=== PATIENT | male | born 1950 | race Two or more races ===

== ENCOUNTER 2020-10-26 20:24 | Inpatient (IN) | payer MEDICARE, OTHER ==
[~2020-10-26] VITALS: Ht 182.9 cm; Wt 121.6 kg
[2020-10-26] MEDS ORDERED: TETANUS-DIPTH-ACEL PERTUSSIS 0.5ML SYR Tdap IM ONE (21:15)
[2020-10-26] MEDS ORDERED: OXYCODONE W/ ACETAMINOPHEN 5/325MG TABLET PO ONE (21:15)
[2020-10-26] MEDS ORDERED: SODIUM CHLORIDE 0.9% 1,000 ML IV ONE (21:15)
[2020-10-26] MEDS ORDERED: LIDOCAINE 1% HCL (LOCAL ANESTH.) INJ 20ML MDV ID ONE (21:30)
[2020-10-26 22:22] LABS: Basophils # (auto) 0.1 10 ^3/uL (0-0.2); Basophils % (auto) 0.4 % (0.0-2.0); Eosinophils # (auto) 0 10 ^3/uL (0-0.8); Eosinophils % (auto) 0.2 % (0.0-7.0); Hematocrit 40.6 % (41.0-53.0); Hemoglobin 14.5 g/dL (13.5-17.5); Lymphocytes # (auto) 1.3 10 ^3/uL (0.4-5.4); Lymphocytes % (auto) 9.7 % (10.0-50.0); Mean Corpuscular Hemoglobin 30.6 pg (28.0-32.0); Mean Corpuscular Hgb Conc. 35.7 g/dL (32.0-36.0); Mean Corpuscular Volume 85.7 fL (80.0-100.0); Monocytes # (auto) 1.7 10 ^3/uL (0-1.3); Monocytes % (auto) 12.4 % (0.0-12.0); Neutrophils # (auto) 10.6 10 ^3/uL (1.6-8.6); Neutrophils % (auto) 77.3 % (37.0-80.0); Nucleated Red Blood Cells % 0.1 %; Red Blood Cells 4.74 10^6/uL (4.5-5.90); Red Cell Distribution Width 14.1 % (11.8-14.3); White Blood Cell 13.7 10^3/uL (4.4-10.8)
[2020-10-26 22:46] LABS: Albumin 3.2 g/dL (3.4-5.0); Calcium 8.3 mg/dL (8.5-10.1); Magnesium 2.7 mg/dL (1.6-2.6); Potassium 3.4 mmol/L (3.5-5.1)
[2020-10-26 22:51] LABS: BUN/Creatinine Ratio 19.9; Bilirubin, Total 0.8 mg/dL (0.2-1.0); Lactic Acid w/Reflex 2.7 mmol/L (0.4-2.0); Total Protein 6.6 g/dL (6.4-8.2)
[2020-10-26 23:14] LABS: INR 1.18 (0.9-1.15)
[2020-10-26] MEDS ORDERED: IOHEXOL 350 MG/ML 100ML IJ ONE (23:31)
[2020-10-27] MEDS ORDERED: ENOXAPARIN SOD 100 MG/1 ML SYRINGE SC ONE (02:30)
[2020-10-27] MEDS ORDERED: ACETAMINOPHEN 325 MG TAB PO PRN (02:45)
[2020-10-27] MEDS ORDERED: MORPHINE SULF INJ 2 MG/ML SYRINGE 1ML IV PRN (02:45)
[2020-10-27] MEDS ORDERED: TEMAZEPAM 15 MG CAP PO PRN (02:45)
[2020-10-27] MEDS ORDERED: ALBUMIN 5% 250 ML IV ONE (02:45)
[2020-10-27] MEDS ORDERED: ATORVASTATIN 20 MG TAB PO ONE (02:45)
[2020-10-27] MEDS ORDERED: NITROGLYCERIN 0.4 MG SL TAB SL PRN (02:45)
[2020-10-27] MEDS: SODIUM CHLORIDE 0.9% 1,000 ML IV SCH ×2 (02:54→18:06)
[2020-10-27] MEDS ORDERED: ENOXAPARIN SOD 120 MG/0.8 ML SYRINGE SC ONE (03:00)
[2020-10-27 03:18] LABS: Anion Gap 12 (5-15); BUN/Creatinine Ratio 20.9; Blood Urea Nitrogen 27 mg/dL (7-18); Calcium 8.2 mg/dL (8.5-10.1); Carbon Dioxide 15 mmol/L (21-32); Chloride 113 mmol/L (98-107); GFR African American 71 mL/min; GFR Non-African American 59 mL/min; Glucose 108 mg/dL (74-106); Potassium 3.7 mmol/L (3.5-5.1); Sodium 140 mmol/L (136-145)
[2020-10-27] MEDS ORDERED: IOHEXOL 350 MG/ML 100ML IJ ONE (04:06)
[2020-10-27 05:52] LABS: Basophils # (auto) 0.1 10 ^3/uL (0-0.2); Basophils % (auto) 1.1 % (0.0-2.0); Eosinophils # (auto) 0 10 ^3/uL (0-0.8); Eosinophils % (auto) 0.3 % (0.0-7.0); Hematocrit 36.1 % (41.0-53.0); Lymphocytes # (auto) 2.2 10 ^3/uL (0.4-5.4); Lymphocytes % (auto) 24.3 % (10.0-50.0); Mean Corpuscular Hemoglobin 31.3 pg (28.0-32.0); Mean Corpuscular Hgb Conc. 35.9 g/dL (32.0-36.0); Mean Corpuscular Volume 87.1 fL (80.0-100.0); Monocytes # (auto) 1.2 10 ^3/uL (0-1.3); Neutrophils # (auto) 5.5 10 ^3/uL (1.6-8.6); Neutrophils % (auto) 61.3 % (37.0-80.0); Nucleated Red Blood Cells % 0.1 %; Red Blood Cells 4.14 10^6/uL (4.5-5.90); Red Cell Distribution Width 14.1 % (11.8-14.3)
[2020-10-27] MEDS: HEPARIN DRIP/D5W 100UNITS/ML 250 ML IV SCH ×2 (06:00→19:30)
[2020-10-27 06:07] LABS: INR 1.24 (0.9-1.15); Partial Thromboplastin Time 31.2 sec (23.0-31.2)
[2020-10-27] MEDS: HYDROcodone-ACET 5/325MG TAB PO PRN (06:33)
[2020-10-27] MEDS: ASPirin 81 mg TAB PO SCH (10:15)
[2020-10-27 10:38] LABS: Cholesterol 86 mg/dL (< 200); HDL Cholesterol 26 mg/dL (40-59); LDL Cholesterol 59 mg/dL (< 100); Triglycerides 117 mg/dL (< 150)
[2020-10-27 10:45] LABS: Urine Bacteria NONE SEEN /hpf (None Seen); Urine Blood 1+ /uL (Negative); Urine Hyaline Cast FEW /lpf (0 - 2); Urine Mucus FEW (None Seen); Urine Specific Gravity 1.045 (1.001-1.035); Urine WBC 2 /hpf (0 - 3)
[2020-10-27 13:53] LABS: INR 1.22 (0.9-1.15)
[2020-10-27 13:55] LABS: Partial Thromboplastin Time 120.6 sec (23.0-31.2)
[2020-10-27] MEDS ORDERED: AML5T PO (15:05)
[2020-10-27] MEDS ORDERED: SIMV5TAB50 PO (15:05)
[2020-10-27] MEDS ORDERED: LOSA100T25 PO (15:08)
[2020-10-27 18:29] LABS: INR 1.16 (0.9-1.15)
[2020-10-27 18:36] LABS: Partial Thromboplastin Time 79.2 sec (23.0-31.2)
[2020-10-27] MEDS: ATORVASTATIN 20 MG TAB PO SCH (22:04)
[2020-10-28 01:56] LABS: INR 1.12 (0.9-1.15)
[2020-10-28 02:00] LABS: Partial Thromboplastin Time 114.5 sec (23.0-31.2)
[2020-10-28] MEDS: SODIUM CHLORIDE 0.9% 1,000 ML IV SCH ×3 (05:32→22:00)
[2020-10-28] MEDS: HEPARIN DRIP/D5W 100UNITS/ML 250 ML IV SCH ×3 (05:45→19:44)
[2020-10-28] MEDS ORDERED: LIDOCAINE 2%HCL (LOCAL ANESTH.) INJ 20ML MDV ONE (07:42)
[2020-10-28] MEDS ORDERED: IODIXANOL 320MG/ML 100ML BTL IV ONE ×2 (07:42→09:46)
[2020-10-28 07:51] LABS: Albumin 2.6 g/dL (3.4-5.0); Calcium 7.9 mg/dL (8.5-10.1); Potassium 3.2 mmol/L (3.5-5.1)
[2020-10-28 07:53] LABS: BUN/Creatinine Ratio 23.2
[2020-10-28 07:55] LABS: Bilirubin, Total 0.5 mg/dL (0.2-1.0); Total Protein 5.5 g/dL (6.4-8.2)
[2020-10-28] MEDS ORDERED: ANGIOMAX 250 MG VIAL IV ONE (08:20)
[2020-10-28] MEDS ORDERED: MIDAZOLAM HCL 1MG/1ML-2 ML VIAL ONE (08:21)
[2020-10-28] MEDS ORDERED: fentaNYL CITRATE 100 MCG/2 ML VL ONE (08:21)
[2020-10-28] MEDS ORDERED: SODIUM CHL 0.9% 0 ML ONE (08:21)
[2020-10-28 08:37] LABS: Basophils # (auto) 0.1 10 ^3/uL (0-0.2); Basophils % (auto) 0.8 % (0.0-2.0); Eosinophils # (auto) 0.3 10 ^3/uL (0-0.8); Eosinophils % (auto) 3.3 % (0.0-7.0); Hematocrit 31.8 % (41.0-53.0); Hemoglobin 11.5 g/dL (13.5-17.5); Lymphocytes # (auto) 2.4 10 ^3/uL (0.4-5.4); Lymphocytes % (auto) 27.3 % (10.0-50.0); Mean Corpuscular Volume 86.1 fL (80.0-100.0); Monocytes # (auto) 0.8 10 ^3/uL (0-1.3); Monocytes % (auto) 9.4 % (0.0-12.0); Neutrophils # (auto) 5.2 10 ^3/uL (1.6-8.6); Neutrophils % (auto) 59.2 % (37.0-80.0); Red Cell Distribution Width 14.2 % (11.8-14.3); White Blood Cell 8.8 10^3/uL (4.4-10.8)
[2020-10-28] MEDS ORDERED: HYDROmorphone HCL 2 MG/ML VL ONE (08:38)
[2020-10-28] MEDS ORDERED: ONDANSETRON HCL 4 MG/2 ML VIAL ONE (08:38)
[2020-10-28] MEDS ORDERED: diphenhdrAMINE HCL 50 MG/1 ML VL ONE (09:04)
[2020-10-28] MEDS ORDERED: HEPARIN SODIUM (PORCINE) 5000 UNITS/ML 1ML VIAL ONE ×3 (09:22→10:32)
[2020-10-28] MEDS: ASPirin 81 mg TAB PO SCH (10:00)
[2020-10-28 11:48] LABS: Basophils # (auto) 0.1 10 ^3/uL (0-0.2); Basophils % (auto) 1.1 % (0.0-2.0); Eosinophils # (auto) 0.3 10 ^3/uL (0-0.8); Eosinophils % (auto) 2.7 % (0.0-7.0); Hematocrit 31.1 % (41.0-53.0); Hemoglobin 10.9 g/dL (13.5-17.5); Lymphocytes # (auto) 2.5 10 ^3/uL (0.4-5.4); Lymphocytes % (auto) 22.2 % (10.0-50.0); Mean Corpuscular Hemoglobin 30.7 pg (28.0-32.0); Mean Corpuscular Hgb Conc. 35.1 g/dL (32.0-36.0); Mean Corpuscular Volume 87.4 fL (80.0-100.0); Monocytes # (auto) 1.1 10 ^3/uL (0-1.3); Monocytes % (auto) 9.5 % (0.0-12.0); Neutrophils # (auto) 7.3 10 ^3/uL (1.6-8.6); Neutrophils % (auto) 64.5 % (37.0-80.0); Nucleated Red Blood Cells % 0.1 %; Red Blood Cells 3.56 10^6/uL (4.5-5.90); Red Cell Distribution Width 14.2 % (11.8-14.3); White Blood Cell 11.2 10^3/uL (4.4-10.8)
[2020-10-28] MEDS ORDERED: WARFARIN SODIUM 10 MG TAB PO ONE (12:00)
[2020-10-28 14:27] VITALS: BP 113/80
[2020-10-28 16:01] LABS: Basophils # (auto) 0.1 10 ^3/uL (0-0.2); Basophils % (auto) 0.9 % (0.0-2.0); Eosinophils # (auto) 0.1 10 ^3/uL (0-0.8); Eosinophils % (auto) 1.3 % (0.0-7.0); Hematocrit 27.7 % (41.0-53.0); Hemoglobin 10.2 g/dL (13.5-17.5); Lymphocytes # (auto) 1.7 10 ^3/uL (0.4-5.4); Lymphocytes % (auto) 14.8 % (10.0-50.0); Mean Corpuscular Hemoglobin 31.2 pg (28.0-32.0); Mean Corpuscular Volume 85.1 fL (80.0-100.0); Monocytes # (auto) 1.1 10 ^3/uL (0-1.3); Monocytes % (auto) 9.8 % (0.0-12.0); Neutrophils # (auto) 8.5 10 ^3/uL (1.6-8.6); Neutrophils % (auto) 73.2 % (37.0-80.0); Red Blood Cells 3.26 10^6/uL (4.5-5.90); White Blood Cell 11.6 10^3/uL (4.4-10.8)
[2020-10-28 17:14] VITALS: BP 104/61
[2020-10-28 19:23] LABS: INR 1.12 (0.9-1.15); Partial Thromboplastin Time 57.2 sec (23.0-31.2)
[2020-10-28 21:36] VITALS: BP 105/54
[2020-10-28] MEDS: ATORVASTATIN 20 MG TAB PO SCH (22:30)
[2020-10-29 01:40] LABS: INR 1.17 (0.9-1.15)
[2020-10-29 01:58] LABS: Partial Thromboplastin Time 80.7 sec (23.0-31.2)
[2020-10-29] MEDS: HYDROcodone-ACET 5/325MG TAB PO PRN ×3 (04:52→21:42)
[2020-10-29 05:00] VITALS: BP 106/62
[2020-10-29 08:55] LABS: Basophils # (auto) 0.1 10 ^3/uL (0-0.2); Basophils % (auto) 0.8 % (0.0-2.0); Eosinophils # (auto) 0.3 10 ^3/uL (0-0.8); Eosinophils % (auto) 3.3 % (0.0-7.0); Hematocrit 22.4 % (41.0-53.0); Hemoglobin 7.9 g/dL (13.5-17.5); Lymphocytes # (auto) 2.2 10 ^3/uL (0.4-5.4); Lymphocytes % (auto) 27.5 % (10.0-50.0); Mean Corpuscular Hemoglobin 30.7 pg (28.0-32.0); Mean Corpuscular Hgb Conc. 35.3 g/dL (32.0-36.0); Mean Corpuscular Volume 87.2 fL (80.0-100.0); Monocytes # (auto) 0.9 10 ^3/uL (0-1.3); Monocytes % (auto) 11.3 % (0.0-12.0); Neutrophils # (auto) 4.6 10 ^3/uL (1.6-8.6); Neutrophils % (auto) 57.1 % (37.0-80.0); Nucleated Red Blood Cells % 0.1 %; Red Blood Cells 2.57 10^6/uL (4.5-5.90); Red Cell Distribution Width 13.9 % (11.8-14.3)
[2020-10-29 09:00] VITALS: BP 106/58
[2020-10-29 09:04] LABS: Calcium 7.4 mg/dL (8.5-10.1); Potassium 3.5 mmol/L (3.5-5.1)
[2020-10-29 09:13] LABS: INR 1.29 (0.9-1.15)
[2020-10-29 09:17] LABS: Partial Thromboplastin Time 124.4 sec (23.0-31.2)
[2020-10-29] MEDS: ASPirin 81 mg TAB PO SCH (11:54)
[2020-10-29 13:00] VITALS: BP 90/58
[2020-10-29] MEDS: SODIUM CHLORIDE 0.9% 1,000 ML IV SCH (13:40)
[2020-10-29] MEDS ORDERED: WARFARIN SODIUM 10 MG TAB PO ONE (17:00)
[2020-10-29 17:29] VITALS: BP 105/46
[2020-10-29] MEDS: ENOXAPARIN SOD 120 MG/0.8 ML SYRINGE SC SCH (21:42)
[2020-10-29] MEDS: ATORVASTATIN 20 MG TAB PO SCH (21:42)
[2020-10-29 22:00] VITALS: BP 98/59
[2020-10-30] MEDS: HYDROcodone-ACET 5/325MG TAB PO PRN ×3 (03:14→21:54)
[2020-10-30 05:00] VITALS: BP 103/66
[2020-10-30 06:11] LABS: Basophils # (auto) 0.1 10 ^3/uL (0-0.2); Eosinophils # (auto) 0.3 10 ^3/uL (0-0.8); Hemoglobin 7.6 g/dL (13.5-17.5); Lymphocytes # (auto) 2.1 10 ^3/uL (0.4-5.4); Monocytes # (auto) 0.8 10 ^3/uL (0-1.3); Neutrophils % (auto) 55.6 % (37.0-80.0); Nucleated Red Blood Cells % 0.1 %
[2020-10-30 06:15] LABS: Basophils % (auto) 1.1 % (0.0-2.0); Eosinophils % (auto) 3.7 % (0.0-7.0); Hematocrit 20.9 % (41.0-53.0); Lymphocytes % (auto) 28.5 % (10.0-50.0); Mean Corpuscular Hemoglobin 31.3 pg (28.0-32.0); Mean Corpuscular Hgb Conc. 36.3 g/dL (32.0-36.0); Mean Corpuscular Volume 86.3 fL (80.0-100.0); Monocytes % (auto) 11.1 % (0.0-12.0); Red Blood Cells 2.42 10^6/uL (4.5-5.90); Red Cell Distribution Width 14.3 % (11.8-14.3); White Blood Cell 7.3 10^3/uL (4.4-10.8)
[2020-10-30 06:30] LABS: Potassium 3.7 mmol/L (3.5-5.1)
[2020-10-30 06:34] LABS: Calcium 7.3 mg/dL (8.5-10.1)
[2020-10-30 08:00] VITALS: BP 102/61
[2020-10-30 09:00] VITALS: BP 102/61
[2020-10-30] MEDS: ASPirin 81 mg TAB PO SCH (09:37)
[2020-10-30] MEDS: ENOXAPARIN SOD 120 MG/0.8 ML SYRINGE SC SCH ×2 (09:37→21:53)
[2020-10-30] MEDS: SODIUM CHLORIDE 0.9% 1,000 ML IV SCH (10:45)
[2020-10-30 12:45] VITALS: BP 90/56
[2020-10-30 16:36] VITALS: BP 110/65
[2020-10-30] MEDS ORDERED: WARFARIN SODIUM 5 MG TAB PO SCH (17:00)
[2020-10-30] MEDS: ATORVASTATIN 20 MG TAB PO SCH (21:53)
[2020-10-30 22:00] VITALS: BP 93/51
[2020-10-31] MEDS: SODIUM CHLORIDE 0.9% 1,000 ML IV SCH ×2 (00:05→13:25)
[2020-10-31 05:00] VITALS: BP 89/50
[2020-10-31 06:47] LABS: Basophils # (auto) 0.1 10 ^3/uL (0-0.2); Eosinophils # (auto) 0.3 10 ^3/uL (0-0.8); Nucleated Red Blood Cells % 0.3 %; Red Cell Distribution Width 14.3 % (11.8-14.3)
[2020-10-31 06:49] LABS: Eosinophils % (auto) 3.7 % (0.0-7.0); Lymphocytes # (auto) 1.8 10 ^3/uL (0.4-5.4); Lymphocytes % (auto) 26.6 % (10.0-50.0); Monocytes # (auto) 0.7 10 ^3/uL (0-1.3); Monocytes % (auto) 10.6 % (0.0-12.0); Neutrophils % (auto) 58.1 % (37.0-80.0); Red Blood Cells 2.18 10^6/uL (4.5-5.90); White Blood Cell 6.9 10^3/uL (4.4-10.8)
[2020-10-31 06:51] LABS: Mean Corpuscular Hgb Conc. 36.8 g/dL (32.0-36.0)
[2020-10-31 07:18] LABS: Calcium 7.4 mg/dL (8.5-10.1); Potassium 3.6 mmol/L (3.5-5.1)
[2020-10-31 07:21] LABS: BUN/Creatinine Ratio 20.8
[2020-10-31 08:56] VITALS: BP 118/69
[2020-10-31 12:40] VITALS: BP 140/82
[2020-10-31] MEDS: OXYCODONE W/ ACETAMINOPHEN 5/325MG TABLET PO PRN (16:46)
[2020-10-31 17:00] VITALS: BP 125/62
[2020-10-31] MEDS ORDERED: SODIUM FERR GLUC 62.5MG/5ML 125 MG in SODIUM CHL 0.9% 100 ML IV ONE (18:00)
[2020-10-31 21:59] VITALS: BP 110/66
[2020-10-31] MEDS: ATORVASTATIN 20 MG TAB PO SCH (22:02)
[2020-10-31] MEDS: ENOXAPARIN SOD 120 MG/0.8 ML SYRINGE SC SCH (22:03)
[2020-11-01] MEDS: SODIUM CHLORIDE 0.9% 1,000 ML IV SCH ×2 (03:00→17:11)
[2020-11-01 05:31] VITALS: BP 121/64
[2020-11-01 06:49] LABS: Basophils # (auto) 0.1 10 ^3/uL (0-0.2); Basophils % (auto) 1.4 % (0.0-2.0); Eosinophils # (auto) 0.2 10 ^3/uL (0-0.8); Hemoglobin 7.1 g/dL (13.5-17.5); Lymphocytes # (auto) 1.8 10 ^3/uL (0.4-5.4); Monocytes # (auto) 0.9 10 ^3/uL (0-1.3); Neutrophils # (auto) 4.2 10 ^3/uL (1.6-8.6); Red Cell Distribution Width 14.8 % (11.8-14.3)
[2020-11-01 06:50] LABS: Eosinophils % (auto) 2.9 % (0.0-7.0); Hematocrit 19.4 % (41.0-53.0); Lymphocytes % (auto) 25.2 % (10.0-50.0); Mean Corpuscular Hemoglobin 31.8 pg (28.0-32.0); Mean Corpuscular Volume 86.9 fL (80.0-100.0); Monocytes % (auto) 12.1 % (0.0-12.0); Neutrophils % (auto) 58.4 % (37.0-80.0); Nucleated Red Blood Cells % 0.5 %; Red Blood Cells 2.24 10^6/uL (4.5-5.90); White Blood Cell 7.2 10^3/uL (4.4-10.8)
[2020-11-01 06:51] LABS: Mean Corpuscular Hgb Conc. 36.6 g/dL (32.0-36.0)
[2020-11-01 07:03] LABS: INR 1.08 (0.9-1.15); Partial Thromboplastin Time 32.9 sec (23.0-31.2)
[2020-11-01] MEDS: ENOXAPARIN SOD 120 MG/0.8 ML SYRINGE SC SCH (08:39)
[2020-11-01] MEDS: OXYCODONE W/ ACETAMINOPHEN 5/325MG TABLET PO PRN ×3 (08:40→23:27)
[2020-11-01 09:00] VITALS: BP 102/53
[2020-11-01 13:00] VITALS: BP 115/60
[2020-11-01] MEDS ORDERED: SODIUM FERR GLUC 62.5MG/5ML 125 MG in SODIUM CHL 0.9% 100 ML IV ONE (15:00)
[2020-11-01 17:00] VITALS: BP 99/52
[2020-11-01 22:00] VITALS: BP 112/66
[2020-11-01] MEDS: ATORVASTATIN 20 MG TAB PO SCH (22:05)
[2020-11-01 22:29] LABS: Urine WBC None Seen /hpf (0 - 3)
[2020-11-01 22:37] LABS: Urine Bacteria NONE SEEN /hpf (None Seen); Urine Blood Negative /uL (Negative); Urine Specific Gravity 1.011 (1.001-1.035)
[2020-11-02 05:00] VITALS: BP 100/56
[2020-11-02] MEDS: SODIUM CHLORIDE 0.9% 1,000 ML IV SCH ×2 (05:26→12:37)
[2020-11-02 06:37] LABS: Eosinophils # (auto) 0.2 10 ^3/uL (0-0.8); Hemoglobin 7.2 g/dL (13.5-17.5); Mean Corpuscular Volume 87.9 fL (80.0-100.0); White Blood Cell 6.9 10^3/uL (4.4-10.8)
[2020-11-02 06:40] LABS: Basophils # (auto) 0.1 10 ^3/uL (0-0.2); Basophils % (auto) 0.7 % (0.0-2.0); Eosinophils % (auto) 3.1 % (0.0-7.0); Hematocrit 19.9 % (41.0-53.0); Lymphocytes # (auto) 1.5 10 ^3/uL (0.4-5.4); Lymphocytes % (auto) 22.5 % (10.0-50.0); Mean Corpuscular Hemoglobin 31.7 pg (28.0-32.0); Mean Corpuscular Hgb Conc. 36.1 g/dL (32.0-36.0); Monocytes # (auto) 0.8 10 ^3/uL (0-1.3); Neutrophils # (auto) 4.2 10 ^3/uL (1.6-8.6); Neutrophils % (auto) 61.7 % (37.0-80.0); Nucleated Red Blood Cells % 0.2 %; Red Blood Cells 2.26 10^6/uL (4.5-5.90); Red Cell Distribution Width 15.1 % (11.8-14.3)
[2020-11-02 06:51] LABS: Calcium 7.6 mg/dL (8.5-10.1); INR 1.05 (0.9-1.15); Potassium 4.2 mmol/L (3.5-5.1)
[2020-11-02 06:53] LABS: BUN/Creatinine Ratio 17.4
[2020-11-02 09:00] VITALS: BP 98/58
[2020-11-02] MEDS: ENOXAPARIN SOD 120 MG/0.8 ML SYRINGE SC SCH (10:06)
[2020-11-02] MEDS ORDERED: SENNA 8.6 MG TAB PO ONE (12:45)
[2020-11-02 13:00] VITALS: BP 102/60
[2020-11-02] MEDS: DOCUSATE SOD 100 MG CAP PO PRN (14:26)
[2020-11-02 17:00] VITALS: BP 107/59
[2020-11-02] MEDS: OXYCODONE W/ ACETAMINOPHEN 5/325MG TABLET PO PRN ×2 (17:10→23:15)
[2020-11-02] MEDS: ATORVASTATIN 20 MG TAB PO SCH (21:41)
[2020-11-02 22:00] VITALS: BP 103/52
[2020-11-03] VITALS (11 sets, daily range): BP systolic 94–114; BP diastolic 46–63
[2020-11-03] MEDS: MORPHINE SULF INJ 2 MG/ML SYRINGE 1ML IV PRN (01:28)
[2020-11-03] MEDS: SODIUM CHLORIDE 0.9% 1,000 ML IV SCH ×2 (06:07→21:25)
[2020-11-03] MEDS: ENOXAPARIN SOD 120 MG/0.8 ML SYRINGE SC SCH (09:48)
[2020-11-03 10:41] LABS: Basophils # (auto) 0.1 10 ^3/uL (0-0.2); Eosinophils # (auto) 0.2 10 ^3/uL (0-0.8); Hemoglobin 7.3 g/dL (13.5-17.5); Mean Corpuscular Hgb Conc. 34.5 g/dL (32.0-36.0); Monocytes # (auto) 1.1 10 ^3/uL (0-1.3); Nucleated Red Blood Cells % 0.2 %
[2020-11-03 10:42] LABS: Basophils % (auto) 0.8 % (0.0-2.0); Eosinophils % (auto) 2.9 % (0.0-7.0); Hematocrit 21.2 % (41.0-53.0); Lymphocytes # (auto) 1.1 10 ^3/uL (0.4-5.4); Lymphocytes % (auto) 15.8 % (10.0-50.0); Mean Corpuscular Hemoglobin 30.5 pg (28.0-32.0); Mean Corpuscular Volume 88.5 fL (80.0-100.0); Monocytes % (auto) 15.4 % (0.0-12.0); Neutrophils # (auto) 4.7 10 ^3/uL (1.6-8.6); Neutrophils % (auto) 65.1 % (37.0-80.0); Red Cell Distribution Width 15.4 % (11.8-14.3); White Blood Cell 7.2 10^3/uL (4.4-10.8)
[2020-11-03 10:55] LABS: BUN/Creatinine Ratio 21.9; Calcium 7.8 mg/dL (8.5-10.1); Potassium 4.1 mmol/L (3.5-5.1)
[2020-11-03] MEDS: OXYCODONE W/ ACETAMINOPHEN 5/325MG TABLET PO PRN (20:20)
[2020-11-03] MEDS: PANTOPRAZOLE 40 MG TAB PO SCH (21:34)
[2020-11-03] MEDS: ATORVASTATIN 20 MG TAB PO SCH (21:34)
[2020-11-04 05:00] VITALS: BP 95/58
[2020-11-04] MEDS: OXYCODONE W/ ACETAMINOPHEN 5/325MG TABLET PO PRN ×2 (05:35→14:00)
[2020-11-04 06:01] LABS: Hematocrit 31.9 % (41.0-53.0); Hemoglobin 10.7 g/dL (13.5-17.5); Mean Corpuscular Hemoglobin 27.6 pg (28.0-32.0); Mean Corpuscular Hgb Conc. 33.7 g/dL (32.0-36.0); Mean Corpuscular Volume 82.1 fL (80.0-100.0); Red Blood Cells 3.88 10^6/uL (4.5-5.90); Red Cell Distribution Width 15.6 % (11.8-14.3); White Blood Cell 12.7 10^3/uL (4.4-10.8)
[2020-11-04 06:20] LABS: Basophils % (manual) 0 (0.0-2.0); Blast Cells 0; Metamyelocytes % 0; Monocytes % (manual) 0 (0-12); Myelocytes % 0; Promyelocytes % 0; Reactive Lymphocytes 0
[2020-11-04 06:39] LABS: Potassium 4.3 mmol/L (3.5-5.1)
[2020-11-04 06:45] LABS: BUN/Creatinine Ratio 22.4; Calcium 8.4 mg/dL (8.5-10.1)
[2020-11-04 08:28] LABS: Band Neutrophils % (manual) 1; Eosinophils % (manual) 1 (0-7); Lymphocytes % (manual) 24 (10.0-50.0)
[2020-11-04 09:00] VITALS: BP 105/63
[2020-11-04] MEDS ORDERED: OMNIPAQUE ORAL SOLN 500ml 12mg/ml PO ONE (09:48)
[2020-11-04] MEDS: PANTOPRAZOLE 40 MG TAB PO SCH ×2 (09:49→21:35)
[2020-11-04] MEDS: ENOXAPARIN SOD 120 MG/0.8 ML SYRINGE SC SCH (09:49)
[2020-11-04] MEDS: SODIUM CHLORIDE 0.9% 1,000 ML IV SCH (09:52)
[2020-11-04] MEDS ORDERED: IOHEXOL 300 MG/ML 100ML BOTTLE IJ ONE (10:05)
[2020-11-04 13:00] VITALS: BP 90/51
[2020-11-04 17:00] VITALS: BP 91/53
[2020-11-04] MEDS: ATORVASTATIN 20 MG TAB PO SCH (21:36)
[2020-11-04 22:00] VITALS: BP 96/53
[2020-11-05] MEDS: SODIUM CHLORIDE 0.9% 1,000 ML IV SCH (00:37)
[2020-11-05 05:13] VITALS: BP 107/57
[2020-11-05 07:24] LABS: Anion Gap 4 (5-15); BUN/Creatinine Ratio 20.6; Blood Urea Nitrogen 14 mg/dL (7-18); Calcium 8.2 mg/dL (8.5-10.1); Carbon Dioxide 26 mmol/L (21-32); Chloride 108 mmol/L (98-107); GFR African American 149 mL/min; GFR Non-African American 123 mL/min; Glucose 84 mg/dL (74-106); Potassium 5.4 mmol/L (3.5-5.1); Sodium 138 mmol/L (136-145)
[2020-11-05 07:42] LABS: Basophils # (auto) 0.1 10 ^3/uL (0-0.2); Basophils % (auto) 1.8 % (0.0-2.0); Eosinophils # (auto) 0.2 10 ^3/uL (0-0.8); Eosinophils % (auto) 2.4 % (0.0-7.0); Hematocrit 27.8 % (41.0-53.0); Hemoglobin 9.4 g/dL (13.5-17.5); Lymphocytes # (auto) 1.3 10 ^3/uL (0.4-5.4); Lymphocytes % (auto) 17.2 % (10.0-50.0); Mean Corpuscular Hemoglobin 29.6 pg (28.0-32.0); Mean Corpuscular Hgb Conc. 33.9 g/dL (32.0-36.0); Mean Corpuscular Volume 87.4 fL (80.0-100.0); Monocytes % (auto) 13.5 % (0.0-12.0); Neutrophils # (auto) 5.1 10 ^3/uL (1.6-8.6); Neutrophils % (auto) 65.1 % (37.0-80.0); Red Blood Cells 3.18 10^6/uL (4.5-5.90); Red Cell Distribution Width 16.2 % (11.8-14.3); White Blood Cell 7.8 10^3/uL (4.4-10.8)
[2020-11-05 09:00] VITALS: BP 104/59
[2020-11-05] MEDS ORDERED: SODIUM ZIRCONIUM CYCL 10 GM PAK PO ONE (09:30)
[2020-11-05] MEDS ORDERED: ALBUTEROL SULF 2.5 MG/0.5ML(0.5%) NEB SOLN NEB ONE (09:30)
[2020-11-05] MEDS ORDERED: InsuLIN REG 1unit/0.01ml Soln (100units/ml) IV ONE (09:30)
[2020-11-05] MEDS ORDERED: SODIUM BICARBONATE 8.4% INJ 50ML SYRINGE IV ONE (09:30)
[2020-11-05] MEDS ORDERED: DEXTROSE (50%) 50ML SYRG IV ONE (09:30)
[2020-11-05] MEDS: OXYCODONE W/ ACETAMINOPHEN 5/325MG TABLET PO PRN ×2 (09:53→21:55)
[2020-11-05] MEDS: PANTOPRAZOLE 40 MG TAB PO SCH ×2 (09:53→21:54)
[2020-11-05] MEDS: DOCUSATE SOD 100 MG CAP PO PRN (09:53)
[2020-11-05] MEDS: ENOXAPARIN SOD 120 MG/0.8 ML SYRINGE SC SCH (09:54)
[2020-11-05 13:00] VITALS: BP 100/50
[2020-11-05 16:51] VITALS: BP 93/56
[2020-11-05] MEDS: ATORVASTATIN 20 MG TAB PO SCH (21:54)
[2020-11-05 22:00] VITALS: BP 102/61
[2020-11-06 05:00] VITALS: BP 91/53
[2020-11-06 09:00] VITALS: BP 101/56
[2020-11-06] MEDS: PANTOPRAZOLE 40 MG TAB PO SCH ×2 (10:00→21:20)
[2020-11-06] MEDS: ENOXAPARIN SOD 120 MG/0.8 ML SYRINGE SC SCH (10:00)
[2020-11-06 13:00] VITALS: BP 93/52
[2020-11-06 17:00] VITALS: BP 100/55
[2020-11-06] MEDS: DOCUSATE SOD 100 MG CAP PO PRN (21:20)
[2020-11-06] MEDS: ATORVASTATIN 20 MG TAB PO SCH (21:20)
[2020-11-06 22:00] VITALS: BP 104/59
[2020-11-07 05:00] VITALS: BP 85/47
[2020-11-07 05:10] VITALS: BP 106/54
[2020-11-07 06:29] LABS: Basophils # (auto) 0.1 10 ^3/uL (0-0.2); Eosinophils # (auto) 0.2 10 ^3/uL (0-0.8); Eosinophils % (auto) 2.2 % (0.0-7.0); Hematocrit 28.1 % (41.0-53.0); Hemoglobin 9.8 g/dL (13.5-17.5); Lymphocytes # (auto) 1.8 10 ^3/uL (0.4-5.4); Lymphocytes % (auto) 24.3 % (10.0-50.0); Mean Corpuscular Hemoglobin 30.4 pg (28.0-32.0); Mean Corpuscular Hgb Conc. 34.9 g/dL (32.0-36.0); Mean Corpuscular Volume 87.2 fL (80.0-100.0); Monocytes # (auto) 0.7 10 ^3/uL (0-1.3); Monocytes % (auto) 9.6 % (0.0-12.0); Neutrophils # (auto) 4.5 10 ^3/uL (1.6-8.6); Neutrophils % (auto) 62.9 % (37.0-80.0); Red Blood Cells 3.22 10^6/uL (4.5-5.90); Red Cell Distribution Width 16.3 % (11.8-14.3); White Blood Cell 7.2 10^3/uL (4.4-10.8)
[2020-11-07 06:55] LABS: BUN/Creatinine Ratio 15.9; Calcium 8.1 mg/dL (8.5-10.1)
[2020-11-07 09:00] VITALS: BP 89/52
[2020-11-07] MEDS: ENOXAPARIN SOD 120 MG/0.8 ML SYRINGE SC SCH (09:21)
[2020-11-07] MEDS: PANTOPRAZOLE 40 MG TAB PO SCH ×2 (09:21→21:15)
[2020-11-07] MEDS ORDERED: SODIUM CHLORIDE 0.9% 250 ML IV ONE (10:45)
[2020-11-07] MEDS ORDERED: SODIUM CHLORIDE 0.9% 1,000 ML IV ONE (10:45)
[2020-11-07] MEDS ORDERED: fentaNYL CITRATE 100 MCG/2 ML VL ONE ×2 (13:43→15:10)
[2020-11-07] MEDS ORDERED: HYDROmorphone HCL 2 MG/ML VL ONE (13:43)
[2020-11-07] MEDS ORDERED: MIDAZOLAM HCL 1MG/1ML-2 ML VIAL ONE (13:44)
[2020-11-07] MEDS ORDERED: ONDANSETRON HCL 4 MG/2 ML VIAL ONE (13:44)
[2020-11-07] MEDS ORDERED: PROPOFOL 10 MG/ML 20 ML IV ONE (13:44)
[2020-11-07] MEDS ORDERED: DexAMETHasone SOD PHOS 10MG/1ML VIAL INJ ONE (13:44)
[2020-11-07] MEDS ORDERED: LIDOCAINE 2% (LOCAL ANESTH.) PF 5ml SDV ONE (13:44)
[2020-11-07] MEDS ORDERED: ROCURONIUM 10MG/ML 10ML VIAL IV ONE (13:44)
[2020-11-07] MEDS ORDERED: GLYCOPYRROLATE 0.2 MG/ML 1ML VIAL ONE (13:44)
[2020-11-07] MEDS ORDERED: CLINDAMYCIN 900MG IV 50 ML IV ONE (13:51)
[2020-11-07] MEDS ORDERED: HYDROmorphone HCL 2 MG/ML VL IV PRN (16:00)
[2020-11-07] MEDS ORDERED: ONDANSETRON HCL 4 MG/2 ML VIAL IV PRN (16:00)
[2020-11-07] MEDS: MORPHINE SULF INJ 2 MG/ML SYRINGE 1ML IV PRN (18:46)
[2020-11-07] MEDS: ATORVASTATIN 20 MG TAB PO SCH (21:14)
[2020-11-07] MEDS: CLINDAMYCIN 600MG IV 50 ML IV SCH (21:14)
[2020-11-07 22:41] VITALS: BP 99/61
[2020-11-08] MEDS: CLINDAMYCIN 600MG IV 50 ML IV SCH (05:17)
[2020-11-08 05:23] VITALS: BP 115/69
[2020-11-08 09:00] VITALS: BP 101/52
[2020-11-08] MEDS: PANTOPRAZOLE 40 MG TAB PO SCH ×2 (09:49→21:17)
[2020-11-08 13:00] VITALS: BP 102/64
[2020-11-08] MEDS: ENOXAPARIN SOD 120 MG/0.8 ML SYRINGE SC SCH ×2 (16:00→17:00)
[2020-11-08 17:00] VITALS: BP 92/52
[2020-11-08] MEDS: ONDANSETRON HCL 4 MG/2 ML VIAL IV PRN ×2 (17:20→21:25)
[2020-11-08] MEDS: ATORVASTATIN 20 MG TAB PO SCH (21:17)
[2020-11-08] MEDS: OXYCODONE W/ ACETAMINOPHEN 5/325MG TABLET PO PRN (21:33)
[2020-11-08 22:00] VITALS: BP 108/65
[2020-11-09] MEDS: MORPHINE SULF INJ 2 MG/ML SYRINGE 1ML IV PRN (01:39)
[2020-11-09 05:13] VITALS: BP 97/57
[2020-11-09 09:00] VITALS: BP 94/50
[2020-11-09] MEDS: PANTOPRAZOLE 40 MG TAB PO SCH ×2 (10:09→21:00)
[2020-11-09 13:00] VITALS: BP 125/76
[2020-11-09 13:04] LABS: Basophils # (auto) 0.1 10 ^3/uL (0-0.2); Basophils % (auto) 1.2 % (0.0-2.0); Eosinophils # (auto) 0.2 10 ^3/uL (0-0.8); Eosinophils % (auto) 2.2 % (0.0-7.0); Hematocrit 30.7 % (41.0-53.0); Hemoglobin 10.4 g/dL (13.5-17.5); Lymphocytes # (auto) 2.2 10 ^3/uL (0.4-5.4); Lymphocytes % (auto) 24.9 % (10.0-50.0); Mean Corpuscular Hemoglobin 29.7 pg (28.0-32.0); Mean Corpuscular Hgb Conc. 33.7 g/dL (32.0-36.0); Mean Corpuscular Volume 88.1 fL (80.0-100.0); Monocytes # (auto) 0.9 10 ^3/uL (0-1.3); Monocytes % (auto) 10.5 % (0.0-12.0); Neutrophils # (auto) 5.4 10 ^3/uL (1.6-8.6); Neutrophils % (auto) 61.2 % (37.0-80.0); Red Blood Cells 3.49 10^6/uL (4.5-5.90); Red Cell Distribution Width 16.4 % (11.8-14.3); White Blood Cell 8.8 10^3/uL (4.4-10.8)
[2020-11-09 13:16] LABS: INR 0.99 (0.9-1.15)
[2020-11-09] MEDS: OXYCODONE W/ ACETAMINOPHEN 5/325MG TABLET PO PRN (16:48)
[2020-11-09] MEDS ORDERED: WARFARIN SODIUM 10 MG TAB PO ONE (17:00)
[2020-11-09] MEDS: ATORVASTATIN 20 MG TAB PO SCH (21:00)
[2020-11-09 22:00] VITALS: BP 92/60
[2020-11-10] MEDS: OXYCODONE W/ ACETAMINOPHEN 5/325MG TABLET PO PRN (00:38)
[2020-11-10 05:58] LABS: Basophils # (auto) 0.1 10 ^3/uL (0-0.2); Basophils % (auto) 1.2 % (0.0-2.0); Eosinophils # (auto) 0.2 10 ^3/uL (0-0.8); Hematocrit 27.8 % (41.0-53.0); Hemoglobin 9.5 g/dL (13.5-17.5); Lymphocytes # (auto) 2.4 10 ^3/uL (0.4-5.4); Mean Corpuscular Hgb Conc. 34.3 g/dL (32.0-36.0); Mean Corpuscular Volume 87.6 fL (80.0-100.0); Monocytes # (auto) 0.7 10 ^3/uL (0-1.3); Monocytes % (auto) 8.6 % (0.0-12.0); Neutrophils # (auto) 4.6 10 ^3/uL (1.6-8.6); Neutrophils % (auto) 57.2 % (37.0-80.0); Red Blood Cells 3.18 10^6/uL (4.5-5.90); Red Cell Distribution Width 16.1 % (11.8-14.3)
[2020-11-10 06:09] LABS: INR 1.02 (0.9-1.15)
[2020-11-10 06:13] LABS: BUN/Creatinine Ratio 22.2; Potassium 4.2 mmol/L (3.5-5.1)
[2020-11-10 06:24] VITALS: BP 96/50
[2020-11-10 09:00] VITALS: BP 120/58
[2020-11-10] MEDS: PANTOPRAZOLE 40 MG TAB PO SCH (09:34)
[2020-11-10 13:52] VITALS: BP 107/60
[2020-11-10 17:00] VITALS: BP 114/66
[2020-11-10] MEDS ORDERED: WARFARIN SODIUM 10 MG TAB PO ONE (17:00)
== END 2020-11-10 20:40 | DRG 270 ==
LOC: EDBD 20:24 → ER 20:24 → TELE-WESTW 10-27 02:46 → TELE 10-27 07:19 → TELE-WESTW 10-28 15:01
PROVIDERS: ADMIT Nurse Practitioner; ATTEND Internal Medicine Pulmonary Disease
PROC: 0HQ1XZZ Repair Face Skin, External Approach (ICD-10-PCS; 2020-10-26)
PROC: 02C Heart and Great Vessels, Extirpation (ICD-10-PCS; principal; 2020-10-28)
PROC: 02C Heart and Great Vessels, Extirpation (ICD-10-PCS; 2020-10-28)
PROC: B5191ZA Fluoroscopy of Inferior Vena Cava using Low Osmolar Contrast, Guidance (ICD-10-PCS; 2020-10-28)
PROC: 06H03DZ Insertion of Intraluminal Device into Inferior Vena Cava, Percutaneous Approach (ICD-10-PCS; 2020-10-28)
PROC: 30233N1 Transfusion of Nonautologous Red Blood Cells into Peripheral Vein, Percutaneous Approach (ICD-10-PCS; 2020-11-03)
PROC: 0PSL04Z Reposition Left Ulna with Internal Fixation Device, Open Approach (ICD-10-PCS; 2020-11-07)
DX: I82.433 Acute embolism and thrombosis of popliteal vein, bilateral (principal); I26.99 Other pulmonary embolism without acute cor pulmonale; J96.01 Acute respiratory failure with hypoxia; I21.A1 Myocardial infarction type 2; N17.9 Acute kidney failure, unspecified; D62 Acute posthemorrhagic anemia; Z20.822 Contact with and (suspected) exposure to COVID-19; S52.022A Displaced fracture of olecranon process without intraarticular extension of left ulna, initial encounter for closed fracture; E87.5 Hyperkalemia; I95.1 Orthostatic hypotension; I27.20 Pulmonary hypertension, unspecified; S01.81XA Laceration without foreign body of other part of head, initial encounter; E66.9 Obesity, unspecified; E78.5 Hyperlipidemia, unspecified; I10 Essential (primary) hypertension; K57.90 Diverticulosis of intestine, part unspecified, without perforation or abscess without bleeding; Z79.01 Long term (current) use of anticoagulants; Z85.46 Personal history of malignant neoplasm of prostate; Z86.711 Personal history of pulmonary embolism; Z86.718 Personal history of other venous thrombosis and embolism; Z95.828 Presence of other vascular implants and grafts; Z88.0 Allergy status to penicillin; Z79.899 Other long term (current) drug therapy; Z68.36 Body mass index [BMI] 36.0-36.9, adult
CPT/HCPCS: 12011; 36415; 70450; 71045; 71260; 71275; 73070; 73080; 73090; 74177; 76001; 80048; 80053; 80061; 81001; 81241; 83605; 83735; 84132; 84154; 84484; 85007; 85025; 85027; 85049; 85301; 85302; 85305; 85306; 85379; 85384; 85610; 85613; 85670; 85705; 85730; 85732; 86850; 86900; 86901; 86920; 87426; 90471; 90715; 93005; 93306; 93886; 93970; 94644; 96361; 96365; 96372; 97116; 97163; 97530; 99152; 99153; G0378; J1100; J2001; J2250; J2405; J2704; J3490; Q9967

== ENCOUNTER → 2021-02-01 | Outpatient (CLI) | payer MEDICARE ==
[~2021-02-01] MED LIST: AML5T PO; LOSA100T25 PO; SIMV5TAB50 PO
== END | disposition home or self-care (01) ==
LOC: XY 10:23
PROVIDERS: ATTEND Internal Medicine
DX: I82.533 Chronic embolism and thrombosis of popliteal vein, bilateral (principal); I10 Essential (primary) hypertension
CPT/HCPCS: 93306; 93925; 93970

== ENCOUNTER → 2021-02-08 | Outpatient (CLI) | payer MEDICARE ==
[2021-02-08 10:17] LABS: Basophils # (auto) 0.1 10 ^3/uL (0-0.2); Basophils % (auto) 0.7 % (0.0-2.0); Eosinophils # (auto) 0 10 ^3/uL (0-0.8); Eosinophils % (auto) 0.5 % (0.0-7.0); Hemoglobin 13.8 g/dL (13.5-17.5); Mean Corpuscular Hemoglobin 27.7 pg (28.0-32.0); Mean Corpuscular Hgb Conc. 33.6 g/dL (32.0-36.0); Mean Corpuscular Volume 82.4 fL (80.0-100.0); Neutrophils # (auto) 5.6 10 ^3/uL (1.6-8.6); Nucleated Red Blood Cells % 0.1 %; Red Blood Cells 4.97 10^6/uL (4.5-5.90); Red Cell Distribution Width 17.1 % (11.8-14.3); White Blood Cell 8.3 10^3/uL (4.4-10.8)
[2021-02-08 10:21] LABS: Lymphocytes % (auto) 14.6 % (10.0-50.0); Monocytes % (auto) 17.2 % (0.0-12.0)
[2021-02-08 10:22] LABS: Lymphocytes # (auto) 1.2 10 ^3/uL (0.4-5.4); Monocytes # (auto) 1.4 10 ^3/uL (0-1.3)
[2021-02-08 10:43] LABS: INR 2.27 (0.9-1.15); Partial Thromboplastin Time 38.4 sec (23.6-33.0)
[2021-02-08 10:58] LABS: Potassium 3.1 mmol/L (3.5-5.1)
[2021-02-08 11:04] LABS: BUN/Creatinine Ratio 15.8; Bilirubin, Total 0.6 mg/dL (0.2-1.0); Total Protein 7.7 g/dL (6.4-8.2)
== END | disposition home or self-care (01) ==
LOC: LAB 09:56
PROVIDERS: ATTEND Nurse Practitioner Acute Care
DX: I82.533 Chronic embolism and thrombosis of popliteal vein, bilateral (principal); Z79.899 Other long term (current) drug therapy
CPT/HCPCS: 36415; 80053; 80061; 85025; 85379; 85610; 85730

== ENCOUNTER → 2021-03-31 | Outpatient (CLI) | payer MEDICARE | END | disposition home or self-care (01) | LOC: XY 10:34 | PROVIDERS: ATTEND Internal Medicine | DX: I82.533 Chronic embolism and thrombosis of popliteal vein, bilateral (principal); I77.9 Disorder of arteries and arterioles, unspecified; I87.1 Compression of vein | CPT/HCPCS: 93925; 93970 ==

== ENCOUNTER → 2021-08-24 | Outpatient (CLI) | payer OTHER, MEDICARE | END | disposition home or self-care (01) | LOC: LAB 12:08 | PROVIDERS: ATTEND Urology | DX: C61 Malignant neoplasm of prostate (principal); N40.1 Benign prostatic hyperplasia with lower urinary tract symptoms; R31.0 Gross hematuria; N39.0 Urinary tract infection, site not specified | CPT/HCPCS: 84153; 84154; 87086; 87088; 87186 ==

== ENCOUNTER → 2021-08-24 | Outpatient (CLI) | payer OTHER | END | disposition home or self-care (01) | LOC: XYW 10:41 | PROVIDERS: ATTEND Internal Medicine | DX: I82.533 Chronic embolism and thrombosis of popliteal vein, bilateral (principal); I87.2 Venous insufficiency (chronic) (peripheral) | CPT/HCPCS: 93925; 93970 ==

== ENCOUNTER 2021-11-22 06:39 | Day surgery (SDC) | payer OTHER ==
[2021-11-19 13:28] LABS: Basophils # (auto) 0.1 10 ^3/uL (0-0.2); Basophils % (auto) 0.6 % (0.0-2.0); Eosinophils # (auto) 0.1 10 ^3/uL (0-0.8); Eosinophils % (auto) 0.9 % (0.0-7.0); Hematocrit 40.8 % (41.0-53.0); Hemoglobin 13.6 g/dL (13.5-17.5); Lymphocytes # (auto) 2.4 10 ^3/uL (0.4-5.4); Lymphocytes % (auto) 24.9 % (10.0-50.0); Mean Corpuscular Hemoglobin 28.9 pg (28.0-32.0); Mean Corpuscular Hgb Conc. 33.3 g/dL (32.0-36.0); Mean Corpuscular Volume 86.7 fL (80.0-100.0); Monocytes % (auto) 10.2 % (0.0-12.0); Neutrophils % (auto) 63.4 % (37.0-80.0); Red Blood Cells 4.71 10^6/uL (4.5-5.90); Red Cell Distribution Width 15.8 % (11.8-14.3); White Blood Cell 9.5 10^3/uL (4.4-10.8)
[2021-11-19 13:46] LABS: INR 2.65 (0.9-1.15); Partial Thromboplastin Time 41.7 sec (24.6-33.4)
[2021-11-19 13:49] LABS: Calcium 9.1 mg/dL (8.5-10.1); Potassium 3.6 mmol/L (3.5-5.1)
[2021-11-19 13:57] LABS: BUN/Creatinine Ratio 13.7; Total Protein 7.6 g/dL (6.4-8.2)
[~2021-11-22] VITALS: Ht 185.4 cm; Wt 120.2 kg
[~2021-11-22 06:39] MED LIST changes: -AML5T PO; +FURO20TA3 PO; +WARF4TAB33 PO; +WARF6TAB21 PO
[2021-11-22 08:47] LABS: INR 1.4 (0.9-1.15); Partial Thromboplastin Time 32.2 sec (24.6-33.4)
[2021-11-22] MEDS ORDERED: fentaNYL CITRATE 100 MCG/2 ML VL ONE (09:49)
[2021-11-22] MEDS ORDERED: MIDAZOLAM HCL 2MG/2ML 2ml VIAL (1mg/ml) ONE (09:49)
[2021-11-22] MEDS ORDERED: LIDOCAINE 2%HCL (LOCAL ANESTH.) INJ 20ML MDV ONE (09:50)
[2021-11-22] MEDS ORDERED: IODIXANOL 320MG/ML 100ML BTL IV ONE (09:50)
== END 2021-11-22 12:04 | disposition home or self-care (01) ==
LOC: CATH 06:39
PROVIDERS: ATTEND Internal Medicine
DX: I82.503 Chronic embolism and thrombosis of unspecified deep veins of lower extremity, bilateral (principal); Z85.46 Personal history of malignant neoplasm of prostate; Z20.822 Contact with and (suspected) exposure to COVID-19
CPT/HCPCS: 36415; 37193; 80053; 85025; 85610; 85730; C1769; C1894; J1644; J2250; J3010; Q9967; U0003; 99152; 99153

== ENCOUNTER 2021-12-16 06:37 | Day surgery (SDC) | payer OTHER ==
[2021-12-14 13:59] LABS: Basophils # (auto) 0.1 10 ^3/uL (0-0.2); Basophils % (auto) 0.8 % (0.0-2.0); Eosinophils # (auto) 0.1 10 ^3/uL (0-0.8); Eosinophils % (auto) 0.8 % (0.0-7.0); Hematocrit 40.7 % (41.0-53.0); Hemoglobin 13.6 g/dL (13.5-17.5); Lymphocytes # (auto) 2.2 10 ^3/uL (0.4-5.4); Lymphocytes % (auto) 25.5 % (10.0-50.0); Mean Corpuscular Hemoglobin 29.6 pg (28.0-32.0); Mean Corpuscular Hgb Conc. 33.4 g/dL (32.0-36.0); Mean Corpuscular Volume 88.5 fL (80.0-100.0); Monocytes % (auto) 11.3 % (0.0-12.0); Neutrophils # (auto) 5.3 10 ^3/uL (1.6-8.6); Neutrophils % (auto) 61.6 % (37.0-80.0); Red Cell Distribution Width 15.8 % (11.8-14.3); White Blood Cell 8.5 10^3/uL (4.4-10.8)
[2021-12-14 14:01] LABS: Urine Bacteria NONE SEEN /hpf (None Seen); Urine Blood Negative /uL (Negative); Urine Specific Gravity 1.006 (1.001-1.035); Urine WBC 5 /hpf (0 - 3)
[2021-12-14 14:53] LABS: INR 1.57 (0.9-1.15); Partial Thromboplastin Time 33.5 sec (24.6-33.4)
[2021-12-14 15:31] LABS: Albumin 3.8 g/dL (3.4-5.0); Calcium 8.7 mg/dL (8.5-10.1); Potassium 3.4 mmol/L (3.5-5.1)
[2021-12-14 15:34] LABS: BUN/Creatinine Ratio 15.3; Bilirubin, Total 0.6 mg/dL (0.2-1.0); Total Protein 6.9 g/dL (6.4-8.2)
[~2021-12-16] VITALS: Ht 185.4 cm; Wt 120.2 kg
[2021-12-16] MEDS ORDERED: CIPROFLOXACIN 400MG/200ML 200 ML IV ONE (07:07)
[2021-12-16] MEDS ORDERED: MIDAZOLAM HCL 2MG/2ML 2ml VIAL (1mg/ml) ONE (07:45)
[2021-12-16] MEDS ORDERED: fentaNYL CITRATE 100 MCG/2 ML VL ONE (07:45)
[2021-12-16 07:59] LABS: INR 1.24 (0.9-1.15); Partial Thromboplastin Time 28.8 sec (24.6-33.4)
[2021-12-16] MEDS ORDERED: ONDANSETRON HCL 4 MG/2 ML VIAL IV PRN (08:15)
[2021-12-16] MEDS ORDERED: HYDROmorphone HCL 2 MG/ML VL/or syr IV PRN (08:15)
[2021-12-16] MEDS ORDERED: PROPOFOL 10 MG/ML 20 ML IV ONE (08:42)
[2021-12-16] MEDS ORDERED: HYDROmorphone HCL 2 MG/ML VL/or syr IV ONE (09:10)
[2021-12-16 09:40] VITALS: BP 120/52
== END 2021-12-16 09:50 | disposition home or self-care (01) ==
LOC: SUR 06:37
PROVIDERS: ATTEND Urology
DX: R97.20 Elevated prostate specific antigen [PSA] (principal); I10 Essential (primary) hypertension; E78.5 Hyperlipidemia, unspecified; Z86.711 Personal history of pulmonary embolism; Z90.89 Acquired absence of other organs; Z98.890 Other specified postprocedural states; Z79.899 Other long term (current) drug therapy; Z88.0 Allergy status to penicillin; Z86.2 Personal history of diseases of the blood and blood-forming organs and certain disorders involving the immune mechanism; Z20.822 Contact with and (suspected) exposure to COVID-19
CPT/HCPCS: 36415; 55706; 80053; 81001; 85025; 85610; 85730; 86850; 86900; 86901; 88305; J0744; J1170; J2250; J2704; J3010; U0003

== ENCOUNTER → 2022-05-27 | Outpatient (CLI) | payer OTHER | END | disposition home or self-care (01) | LOC: LAB 02:30 | PROVIDERS: ATTEND Family Medicine | DX: D49.2 Neoplasm of unspecified behavior of bone, soft tissue, and skin (principal) | CPT/HCPCS: 88302 ==

== ENCOUNTER → 2022-06-10 | Outpatient (CLI) | payer OTHER ==
[2022-06-10 11:14] LABS: Potassium 3.7 mmol/L (3.5-5.1)
[2022-06-10 11:20] LABS: Albumin 3.6 g/dL (3.4-5.0); BUN/Creatinine Ratio 12.1; Bilirubin, Total 0.5 mg/dL (0.2-1.0); Calcium 8.8 mg/dL (8.5-10.1); Total Protein 7.3 g/dL (6.4-8.2)
== END | disposition home or self-care (01) ==
LOC: LAB 10:16
PROVIDERS: ATTEND Urology
DX: I10 Essential (primary) hypertension (principal); R97.20 Elevated prostate specific antigen [PSA]
CPT/HCPCS: 36415; 80053; 84153; 84154; 84443

== ENCOUNTER → 2022-07-11 | Outpatient (CLI) | payer OTHER ==
[2022-07-11 15:18] LABS: Urine Bacteria FEW /hpf (None Seen); Urine Blood Negative /uL (Negative); Urine Specific Gravity 1.022 (1.001-1.035); Urine WBC 127 /hpf (0 - 3)
== END | disposition home or self-care (01) ==
LOC: LAB 14:50
PROVIDERS: ATTEND Urology
DX: N39.0 Urinary tract infection, site not specified (principal)
CPT/HCPCS: 81001; 87086; 87088; 87186

== ENCOUNTER → 2022-08-22 | Outpatient (CLI) | payer OTHER ==
[2022-08-22 13:57] LABS: Cholesterol 123 mg/dL (< 200); HDL Cholesterol 37 mg/dL (40-59); LDL Cholesterol 73 mg/dL (< 100); Triglycerides 114 mg/dL (< 150)
== END | disposition home or self-care (01) ==
LOC: LAB 12:17
PROVIDERS: ATTEND Student in an Organized Health Care Education/Training Program
DX: I10 Essential (primary) hypertension (principal); E78.5 Hyperlipidemia, unspecified; R73.09 Other abnormal glucose
CPT/HCPCS: 36415; 80061; 83036

== ENCOUNTER → 2023-08-16 | Outpatient (CLI) | payer OTHER ==
[~2023-08-16] VITALS: Ht 185.4 cm; Wt 124.7 kg
[~2023-08-16] MED LIST changes: +SIMV5TAB14 PO; -SIMV5TAB50 PO; +WARF-112 PO; +WARF-113 PO; -WARF4TAB33 PO; -WARF6TAB21 PO
[2023-08-16] MEDS: ADENOSINE 105 MG in GIVE UN-DILUTED 0 ML IV ONE (09:05)
== END | disposition home or self-care (01) ==
LOC: XYW 08:05
PROVIDERS: ATTEND Internal Medicine
DX: I82.409 Acute embolism and thrombosis of unspecified deep veins of unspecified lower extremity (principal); R07.9 Chest pain, unspecified; D68.9 Coagulation defect, unspecified; I87.2 Venous insufficiency (chronic) (peripheral); Z86.711 Personal history of pulmonary embolism
CPT/HCPCS: 78452; 93017; A9500; J0153

== ENCOUNTER → 2023-08-24 | Outpatient (CLI) | payer OTHER | END | disposition home or self-care (01) | LOC: XYW 10:34 | PROVIDERS: ATTEND Internal Medicine | DX: I35.1 Nonrheumatic aortic (valve) insufficiency (principal); E65 Localized adiposity; R07.9 Chest pain, unspecified | CPT/HCPCS: 93306 ==

== ENCOUNTER → 2023-08-25 | Outpatient (CLI) | payer OTHER ==
[2023-08-25 09:55] LABS: Basophils # (auto) 0.1 10 ^3/uL (0-0.2); Basophils % (auto) 0.9 % (0.0-2.0); Eosinophils # (auto) 0.2 10 ^3/uL (0-0.8); Eosinophils % (auto) 2.1 % (0.0-7.0); Hematocrit 42.1 % (41.0-53.0); Hemoglobin 13.9 g/dL (13.5-17.5); Lymphocytes # (auto) 2.2 10 ^3/uL (0.4-5.4); Lymphocytes % (auto) 27.8 % (10.0-50.0); Mean Corpuscular Hemoglobin 29.4 pg (28.0-32.0); Mean Corpuscular Hgb Conc. 33.1 g/dL (32.0-36.0); Mean Corpuscular Volume 88.7 fL (80.0-100.0); Monocytes # (auto) 0.7 10 ^3/uL (0-1.3); Monocytes % (auto) 9.1 % (0.0-12.0); Neutrophils # (auto) 4.7 10 ^3/uL (1.6-8.6); Neutrophils % (auto) 60.1 % (37.0-80.0); Nucleated Red Blood Cells % 0.1 %; Red Blood Cells 4.75 10^6/uL (4.5-5.90); Red Cell Distribution Width 15.2 % (11.8-14.3); White Blood Cell 7.9 10^3/uL (4.4-10.8)
[2023-08-25 10:51] LABS: Alanine Aminotransferase 19 U/L (7-40); Albumin 4.1 g/dL (3.2-4.8); Alkaline Phosphatase 63 U/L (46-116); Anion Gap 8 (5-15); Aspartate Aminotransferase 22 U/L (13-40); BUN/Creatinine Ratio 13.4 (10.0-20.0); Blood Urea Nitrogen 15 mg/dL (9-23); Calcium 9.3 mg/dL (8.5-10.1); Carbon Dioxide 21 mmol/L (20-30); Chloride 110 mmol/L (98-107); Cholesterol 117 mg/dL (< 200); Glucose 97 mg/dL (74-106); HDL Cholesterol 30 mg/dL (40-59); LDL Cholesterol 65 mg/dL (< 100); Potassium 4.1 mmol/L (3.5-5.1); Sodium 139 mmol/L (136-145); Triglycerides 145 mg/dL (< 150)
[2023-08-25 10:52] LABS: Bilirubin, Total 0.6 mg/dL (0.2-1.0); Total Protein 6.6 g/dL (5.7-8.2)
== END | disposition home or self-care (01) ==
LOC: LAB 09:42
PROVIDERS: ATTEND Student in an Organized Health Care Education/Training Program
DX: Z12.11 Encounter for screening for malignant neoplasm of colon (principal); I10 Essential (primary) hypertension; E78.5 Hyperlipidemia, unspecified; E66.01 Morbid (severe) obesity due to excess calories
CPT/HCPCS: 36415; 80053; 80061; 82274; 85025

== ENCOUNTER → 2024-08-02 | Outpatient (CLI) | payer OTHER ==
[2024-08-02 11:01] LABS: Urine Bacteria None Seen /hpf (None Seen)
[2024-08-02 11:08] LABS: Basophils # (auto) 0.1 10 ^3/uL (0-0.2); Basophils % (auto) 0.6 % (0.0-2.0); Eosinophils # (auto) 0.2 10 ^3/uL (0-0.8); Eosinophils % (auto) 2.2 % (0.0-7.0); Hematocrit 41.9 % (41.0-53.0); Hemoglobin 14.2 g/dL (13.5-17.5); Lymphocytes # (auto) 2.4 10 ^3/uL (0.4-5.4); Lymphocytes % (auto) 24.2 % (10.0-50.0); Mean Corpuscular Hemoglobin 30.1 pg (28.0-32.0); Mean Corpuscular Volume 88.7 fL (80.0-100.0); Monocytes # (auto) 0.9 10 ^3/uL (0-1.3); Monocytes % (auto) 9.2 % (0.0-12.0); Neutrophils # (auto) 6.2 10 ^3/uL (1.6-8.6); Neutrophils % (auto) 63.8 % (37.0-80.0); Nucleated Red Blood Cells % 0.4 %; Platelet Count (auto) 244 10^3/uL (140-450); Red Blood Cells 4.73 10^6/uL (4.5-5.90); Red Cell Distribution Width 15.4 % (11.8-14.3); White Blood Cell 9.8 10^3/uL (4.4-10.8)
[2024-08-02 11:09] LABS: Urine Blood Negative /uL (Negative); Urine Clarity Clear (Clear); Urine Color Light-Yellow (Yellow); Urine Protein, UAD Negative (Negative); Urine Specific Gravity 1.016 (1.001-1.035); Urine Squamous Epithelial Cell FEW /hpf (<5); Urine Urobilinogen Normal (Negative); Urine WBC 2 /HPF (0-3); Urine pH 5.5 (5.0-9.0)
[2024-08-02 11:45] LABS: Alanine Aminotransferase 34 U/L (7-40); Albumin 4.4 g/dL (3.2-4.8); Alkaline Phosphatase 77 U/L (46-116); Anion Gap 7 (5-15); Aspartate Aminotransferase 27 U/L (13-40); BUN/Creatinine Ratio 14.3 (10.0-20.0); Blood Urea Nitrogen 18 mg/dL (9-23); Calcium 9.3 mg/dL (8.7-10.4); Carbon Dioxide 22 mmol/L (20-31); Chloride 107 mmol/L (98-107); Cholesterol 130 mg/dL (< 200); Glucose 95 mg/dL (74-106); LDL Cholesterol 75 mg/dL (< 100); Potassium 3.9 mmol/L (3.5-5.1); Sodium 136 mmol/L (136-145); Triglycerides 115 mg/dL (< 150)
[2024-08-02 11:46] LABS: Bilirubin, Total 0.6 mg/dL (0.2-1.0); HDL Cholesterol 36 mg/dL (40-59)
[2024-08-03 08:07] LABS: PSA Free 0.81 ng/mL; Prostate Specific Antigen 6.2 ng/mL (0.0-4.0)
== END | disposition home or self-care (01) ==
LOC: LAB 10:37
PROVIDERS: ATTEND Nurse Practitioner
DX: I10 Essential (primary) hypertension (principal); E78.5 Hyperlipidemia, unspecified; R73.9 Hyperglycemia, unspecified
CPT/HCPCS: 36415; 80053; 80061; 81001; 83036; 84153; 84154; 84443; 85025

== ENCOUNTER → 2024-10-22 | Outpatient (CLI) | payer OTHER ==
[2024-10-22 15:37] LABS: Hematocrit 41.7 % (41.0-53.0); Hemoglobin 14.2 g/dL (13.5-17.5); Mean Corpuscular Hemoglobin 30.0 pg (28.0-32.0); Mean Corpuscular Volume 88.0 fL (80.0-100.0); Nucleated Red Blood Cells % 0.1 %
[2024-10-22 16:03] LABS: Alanine Aminotransferase 23 U/L (7-40); Albumin 4.4 g/dL (3.2-4.8); Alkaline Phosphatase 68 U/L (46-116); Anion Gap 8 (5-15); BUN/Creatinine Ratio 12.4 (10.0-20.0); Bilirubin, Total 0.8 mg/dL (0.2-1.0); Blood Urea Nitrogen 15 mg/dL (9-23); Calcium 9.8 mg/dL (8.7-10.4); Carbon Dioxide 25 mmol/L (20-31); Chloride 106 mmol/L (98-107); Cholesterol 103 mg/dL (< 200); Glucose 86 mg/dL (74-106); Potassium 4.1 mmol/L (3.5-5.1); Sodium 139 mmol/L (136-145); Total Protein 6.8 g/dL (5.7-8.2); Triglycerides 119 mg/dL (< 150)
[2024-10-22 16:55] LABS: HDL Cholesterol 31 mg/dL (40-59)
[2024-10-23 12:04] LABS: Hepatitis A Total Antibody Negative (Negative); Hepatitis B Surface Antigen Negative (Negative); Hepatitis C Antibody Negative (Negative)
[2024-10-23 22:06] LABS: Chlamydia Trachomatis, NAA Negative (Negative); Neisseria gonorrhoeae, NAA Negative (Negative)
== END | disposition home or self-care (01) ==
LOC: LAB 14:56
PROVIDERS: ATTEND Licensed Practical Nurse
DX: I10 Essential (primary) hypertension (principal); E55.9 Vitamin D deficiency, unspecified; D68.69 Other thrombophilia; I82.533 Chronic embolism and thrombosis of popliteal vein, bilateral; R97.20 Elevated prostate specific antigen [PSA]; Z12.11 Encounter for screening for malignant neoplasm of colon
CPT/HCPCS: 36415; 80053; 80061; 82274; 82306; 83036; 84153; 84154; 85025; 86703; 86704; 86706; 86708; 86780; 86803; 87340

== ENCOUNTER 2025-03-11 13:27 | Outpatient (CLI) | payer OTHER ==
[2025-03-11 14:05] LABS: Hematocrit 42.4 % (41.0-53.0); Hemoglobin 14.6 g/dL (13.5-17.5); Mean Corpuscular Hemoglobin 31.1 pg (28.0-32.0); Mean Corpuscular Volume 90.8 fL (80.0-100.0); Nucleated Red Blood Cells % 0.1 %
[2025-03-11 14:37] LABS: Alanine Aminotransferase 29 U/L (7-40); Albumin 4.2 g/dL (3.2-4.8); Alkaline Phosphatase 65 U/L (46-116); Anion Gap 9 (5-15); BUN/Creatinine Ratio 19.6 (10.0-20.0); Blood Urea Nitrogen 22 mg/dL (9-23); Calcium 9.4 mg/dL (8.7-10.4); Carbon Dioxide 24 mmol/L (20-31); Glucose 85 mg/dL (74-106); Potassium 4.2 mmol/L (3.5-5.1); Sodium 142 mmol/L (136-145); Total Protein 6.9 g/dL (5.7-8.2); Triglycerides 84 mg/dL (< 150)
[2025-03-11 14:38] LABS: Bilirubin, Total 0.6 mg/dL (0.2-1.0); Cholesterol 120 mg/dL (< 200)
[2025-03-11 14:40] LABS: Chloride 109 mmol/L (98-107); HDL Cholesterol 35 mg/dL (40-59)
== END 2025-03-11 17:00 | disposition home or self-care (01) ==
LOC: LAB 13:27
PROVIDERS: ATTEND Licensed Practical Nurse
DX: I10 Essential (primary) hypertension (principal); E78.5 Hyperlipidemia, unspecified
CPT/HCPCS: 36415; 80053; 80061; 85025